=== PATIENT | male | born 1950 | race African-American/Black ===

== ENCOUNTER 2020-11-25 13:11 | Emergency (ER) | payer BC, OTHER ==
[~2020-11-25] VITALS: Ht 177.8 cm; Wt 87.0 kg
[~2020-11-25 13:11] MED LIST: AMLO10TA4 PO; BENA40TA9 PO
[2020-11-25] MEDS ORDERED: PENI250S3 MT (14:58)
[2020-11-25 15:08] VITALS: BP 153/79
== END 2020-11-25 15:10 | disposition home or self-care (01) ==
LOC: ER 13:11
DX: R13.10 Dysphagia, unspecified (principal); D64.9 Anemia, unspecified; K08.89 Other specified disorders of teeth and supporting structures; J45.909 Unspecified asthma, uncomplicated; E11.9 Type 2 diabetes mellitus without complications; I10 Essential (primary) hypertension
CPT/HCPCS: 93005; 99283

== ENCOUNTER 2022-04-18 23:12 | Emergency (ER) | payer BC, OTHER ==
[~2022-04-18] VITALS: Ht 175.3 cm; Wt 78.0 kg
[~2022-04-18 23:12] MED LIST changes: -BENA40TA9 PO; +BENA40TA91 PO; +PENI250S3 MT
[2022-04-18] MEDS ORDERED: FENTANYL CITRATE/PF 50MCG/ML 2ML VIAL IM ONE (23:30)
[2022-04-19] MEDS ORDERED: PROPOFOL 200MG/20ML VIAL IV PRN (00:30)
[2022-04-19] MEDS ORDERED: ONDANSETRON HCL 4MG/2ML INJ IV ONE (00:30)
[2022-04-19 04:00] VITALS: BP 118/69
== END 2022-04-19 04:30 | disposition home or self-care (01) ==
LOC: ER 23:12
DX: S43.085A Other dislocation of left shoulder joint, initial encounter (principal); W01.0XXA Fall on same level from slipping, tripping and stumbling without subsequent striking against object, initial encounter; Y93.89 Activity, other specified; Y92.017 Garden or yard in single-family (private) house as the place of occurrence of the external cause
CPT/HCPCS: 73020; 73030; 96372; 96374; 99285; J2405; J2704; J3010; A4565

== ENCOUNTER 2023-04-17 17:10 | Emergency (ER) | payer MEDICARE, OTHER ==
[~2023-04-17] VITALS: Ht 175.3 cm; Wt 86.0 kg
[2023-04-17 17:23] VITALS: BP 114/62; PULSE 104; RESP 18; TEMP 98.2; O2SAT 97
[2023-04-17] MEDS ORDERED: AMOX1TAB16 MT (20:57)
[2023-04-17 21:04] LABS: BASOPHILS % 0.6 % (0.0-2.0); EOSINOPHILS % 0.9 % (0.0-5.0); HEMATOCRIT. 41.3 % (42.0-52.0); HEMOGLOBIN. 14.2 g/dL (14.0-18.0); LYMPHOCYTES % 32.2 % (20.0-50.0); MEAN CORPUSCULAR HEMOGLOBIN 38.5 pg (28.0-32.0); MEAN CORPUSCULAR HGB CONC 34.5 g/dL (31.0-37.0); MEAN CORPUSCULAR VOLUME 111.7 fL (80.0-94.0); MEAN PLATELET VOLUME 6.7 fl (7.4-10.4); MONOCYTES % 7.5 % (2.0-8.0); NEUTROPHILS % 58.8 % (40.0-76.0); PLATELET 306 x1000/uL (130-400); RED BLOOD CELL COUNT 3.69 mill/uL (4.7-6.1); RED CELL DISTRIBUTION WIDTH 14.6 % (11.6-14.6); WHITE BLOOD COUNT 7.3 x1000/uL (4.5-11.0)
[2023-04-17 21:05] LABS: ADD RBC MORPHOLOGY YES; DIFFERENTIAL COMMENT 1
[2023-04-17 21:21] LABS: ALANINE AMINOTRANSFERASE 58 IU/L (10-49); ALBUMIN 4.4 g/dL (3.2-4.8); ASPARTATE AMINOTRANSFERASE 96 IU/L (<34); BILIRUBIN TOTAL 0.5 mg/dL (0.1-1.0); CALCIUM 9.2 mg/dL (8.7-10.4); CARBON DIOXIDE 23 mEq/L (21-32); CHLORIDE 103 mEq/L (98-107); CREATININE 0.8 mg/dL (0.6-1.3); GLUCOSE 99 mg/dL (70-105); PROTEIN TOTAL 7.3 g/dL (6.0-8.3); SODIUM 134 mEq/L (136-145); UREA NITROGEN BLOOD 6 mg/dL (9-23)
[2023-04-17 21:30] LABS: PLATELET ESTIMATE NORMAL
[2023-04-17] MEDS ORDERED: AMOX200S10 MT (22:06)
== END 2023-04-17 21:58 | disposition home or self-care (01) ==
LOC: ER 17:10
DX: K02.9 Dental caries, unspecified (principal); K04.7 Periapical abscess without sinus; D64.9 Anemia, unspecified; R51.9 Headache, unspecified; J45.909 Unspecified asthma, uncomplicated; E11.9 Type 2 diabetes mellitus without complications; I10 Essential (primary) hypertension; Z79.899 Other long term (current) drug therapy
CPT/HCPCS: 36415; 70486; 80053; 85025; 99284